=== PATIENT | female | born 1985 | race Asian ===

== ENCOUNTER 2017-05-14 14:35 | Emergency (ER) | payer BC ==
[~2017-05-14 14:35] MED LIST: CLARITIN LIQUI-10 MG PO; FLONASE ALLERG9.9 ML NS; PRENATAL CAPLE1 EACH PO; RT ALBUTEROL CC18 GM IH
[2017-05-14] MEDS ORDERED: GLUCOPHAGE1000 MG PO (14:41)
[2017-05-14 15:53] LABS: EOS % 0.1 % (1.0-5.0); HEMOGLOBIN 12.2 g/dL (12.5-16.0); MEAN CORPUSCULAR HGB CONC 33 g/dL (33-37); MEAN PLATELET VOLUME 9.7 fl (7.4-10.4); MONO # 0.4 (0.20-0.80); NEU # 5.2 (1.40-6.50); PLATELET COUNT 495 K/mm3 (130-400); RED BLOOD COUNT 5.36 M/mm3 (4.10-5.30); RED CELL DISTRIBUTION WIDTH 14.6 % (11.5-14.5); WHITE BLOOD COUNT 7.6 K/mm3 (4.8-10.8)
[2017-05-14 16:01] LABS: ALBUMIN 4.5 g/dL (3.5-5.0); BUN/CREATININE RATIO 13.9 (6.0-26.0); CALCIUM 9.5 mg/dL (8.4-10.2); POTASSIUM 4.1 mmol/L (3.6-5.0); TOTAL BILIRUBIN 0.7 mg/dL (0.2-1.3); TOTAL PROTEIN 8.1 g/dL (6.3-8.2)
[2017-05-14 16:03] LABS: MEAN CELL VOLUME 69 fl (78-100); MEAN CORPUSCULAR HEMOGLOBIN 23 pg (27-31)
[2017-05-14 16:04] LABS: URINE APPEARANCE CLEAR; URINE COLOR YELLOW
[2017-05-14 16:05] LABS: PH-URINE 8.5 (5.0 - 8.0); URINE BILIRUBIN NEGATIVE (NEGATIVE); URINE BLOOD NEGATIVE (NEGATIVE); URINE GLUCOSE NEGATIVE (NEGATIVE); URINE KETONE 2+ (NEGATIVE); URINE LEUKOCYTE ESTERASE NEGATIVE (NEGATIVE); URINE MUCUS PRESENT (NOT PRESENT); URINE NITRATE NEGATIVE (NEGATIVE); URINE PROTEIN(semi-quant) TRACE mg/dL (NEGATIVE); URINE UROBILINOGEN NORMAL (NORMAL); URINE WBC 0-1 /hpf (0-3)
[2017-05-14] MEDS ORDERED: MECLIZINE PO (18:30)
[2017-05-14 19:20] VITALS: BP 137/87
== END 2017-05-14 19:20 | disposition home or self-care (01) ==
LOC: ED 14:35
PROVIDERS: Physician Assistant
DX: R42 Dizziness and giddiness (principal); R11.2 Nausea with vomiting, unspecified; J45.909 Unspecified asthma, uncomplicated; E74.39 Other disorders of intestinal carbohydrate absorption; Z79.84 Long term (current) use of oral hypoglycemic drugs
CPT/HCPCS: J2405; J2550; J7030

== ENCOUNTER 2018-12-11 23:09 | Emergency (ER) | payer BC ==
[~2018-12-11] VITALS: Ht 152.4 cm; Wt 77.3 kg
[~2018-12-11 23:09] MED LIST changes: +GLUCOPHAGE1000 MG PO; +MECLIZINE PO
[2018-12-11] MEDS ORDERED: GOOD SENSE ASPI81 M1 PO (23:21)
[2018-12-12 00:26] VITALS: BP 120/77
== END 2018-12-12 00:26 | disposition home or self-care (01) ==
LOC: ED 23:09
DX: O46.92 Antepartum hemorrhage, unspecified, second trimester (principal); Z3A.20 20 weeks gestation of pregnancy